=== PATIENT | female | born 1955 ===

== ENCOUNTER 2016-09-26 12:59 | Emergency (ER) | payer OTHER ==
[2016-09-26 13:17] VITALS: BP 99/50
--- NOTE | 2016-09-26 13:29 | UC ---
Lower Extremity/Ankle HPI - HPI Summary HPI Summary: complaint of left ankle and foot pain that started this matias missed a step and scraped foot and fell forwrd onto her knees was able to walk after injury pain is mostly in the yop of her foot constantaching non radiating pain elevating and using ice reduces the pain ambulating increases the pain hasn't taken any medication for pain - History of Current Complaint Chief Complaint: UCLowerExtremity Stated Complaint: FOOT INJURY Time Seen by Provider: 09/26/16 13:13 Hx Obtained From: Patient - Allergies/Home Medications Allergies/Adverse Reactions: Allergies Allergy/AdvReac Type Severity Reaction Status Date / Time No Known Allergies Allergy Verified 04/29/15 16:44 Home Medications: Home Medications Phenytoin CAP(*) [Dilantin CAP(*)] 100 mg PO DAILY 09/26/16 [History Confirmed 09/26/16] PMH/Surg Hx/FS Hx/Imm Hx Previously Healthy: Yes Endocrine History Of: Denies: Diabetes, Thyroid Disease Cardiovascular History Of: Denies: Cardiac Disorders, Hypertension, Deep Vein Thrombosis Respiratory History Of: Denies: COPD, Asthma GI/ History Of: Denies: Ulcer Neurological History Of: Reports: Seizures - Surgical History Surgical History: Yes Surgery Procedure, Year, and Place: DENTAL - Family History Known Family History: Positive: None - both parents alive and well Negative: Cardiac Disease, Hypertension, Diabetes - Social History Occupation: Employed Full-time Lives: With Family Alcohol Use: None Substance Use Type: None Smoking Status (MU): Never Smoked Tobacco Review of Systems Constitutional: Negative Skin: Negative Eyes: Negative ENT: Negative Respiratory: Negative Cardiovascular: Negative Gastrointestinal: Negative Genitourinary: Negative Motor: Negative Neurovascular: Negative Musculoskeletal: Other: - left foot pain Neurological: Negative Psychological: Negative All Other Systems Reviewed And Are Negative: Yes Physical Exam Triage Information Reviewed: Yes Appearance: No Pain Distress, Well-Nourished Vital Signs: Initial Vital Signs Temp 98.8 F 09/26/16 13:14 Pulse 63 09/26/16 13:14 Resp 15 09/26/16 13:14 BP 99/50 09/26/16 13:14 Pulse Ox 99 09/26/16 13:14 Vital Signs Reviewed: Yes Eyes: Positive: Conjunctiva Clear Neck: Positive: No Lymphadenopathy Respiratory: Positive: Lungs clear, Normal breath sounds, No respiratory distress Cardiovascular: Positive: RRR, No Murmur, Pulses Normal Abdomen Description: Positive: Nontender, Soft Bowel Sounds: Positive: Present Musculoskeletal: Positive: Other: - LLE-tenderness,ecchymosis over top of foot, pain in 2nd 3rd 4th 5th metatarsals , Full ROM dorsi/plantar flexion, inversion & eversion. [place] test negative.slight tendnress on medial side of ankle Left knee- slight ecchymosis over patella- non tender full ROM Neurological: Positive: Alert Psychological Exam: Normal Skin Exam: Normal Lower Extremity Course/Dx - Differential Dx/Diagnosis Differential Diagnosis/HQI/PQRI: Fracture (Closed), Sprain, Strain Provider Diagnoses: left foot- nondisplaced navicular fracture Discharge - Discharge Plan Condition: Stable Disposition: HOME Patient Education Materials: Foot Fracture in Adults (ED) Referrals: No Primary Care Phys,NOPCP [Primary Care Provider] - [facility] [place] [facility]IAN REFERRAL [Outside] Kevin Kirkland MD [Medical Doctor] - Additional Instructions: Please call dairy nutrition specialist for an appointment. They will evaluate and determine your treatment. It is important to keep weight off of your fracture. Use crutches and wear CAM boot until you are seen by orthopedics. Take acetaminophen or ibuprofen to control pain and reduce inflammation. Please review your discharge instructions. If your symptoms worsen call dairy nutrition specialist or return to urgent care.
--- NOTE | 2016-09-26 14:13 | RAD ---
HISTORY: Trauma to left foot and ankle COMPARISONS: None VIEWS: 4, Frontal and lateral views of the left foot and left ankle FINDINGS: BONE DENSITY: Normal. BONES: There is a nondisplaced fracture through the dorsum of the navicular bone JOINTS: There is no arthropathy. There is a small joint effusion of the ankle ALIGNMENT: There is no dislocation. SOFT TISSUES: Unremarkable. OTHER FINDINGS: None. IMPRESSION: SMALL ANKLE JOINT EFFUSION WITH A NONDISPLACED FRACTURE THROUGH THE DORSAL ASPECT OF NAVICULAR BONE
== END 2016-09-26 14:35 | disposition home or self-care (01) ==
LOC: UCEAST 12:59
DX: S92.255A Nondisplaced fracture of navicular [scaphoid] of left foot, initial encounter for closed fracture (principal); W10.9XXA Fall (on) (from) unspecified stairs and steps, initial encounter; Y93.9 Activity, unspecified; Y92.9 Unspecified place or not applicable
CPT/HCPCS: 99212; G0463